=== PATIENT | female | born 1965 | race Native Hawaiian/Other Pacific Islander ===

== ENCOUNTER 2016-11-19 07:59 | Day surgery (SDC) | payer OTHER ==
[~2016-11-19 07:59] MED LIST: FENTANYL 250 MCG/5 ML AMP IV PRN; LACTATED RINGERS 1,000 ML IV SCH; MIDAZOLAM HCL 5 MG/5 ML VIAL IV PRN
[2016-11-19] MEDS ORDERED: LACTATED RINGERS 1,000 ML ONE (08:07)
[2016-11-19] MEDS ORDERED: IV START KIT ONE (08:08)
[2016-11-19] MEDS ORDERED: ONDANSETRON 4 MG/2ML 2 ML VIAL IV ONE (08:31)
[2016-11-19] MEDS ORDERED: FENTANYL 250 MCG/5 ML AMP ONE (08:33)
[2016-11-19] MEDS ORDERED: MIDAZOLAM HCL 5 MG/5 ML VIAL ONE (08:33)
--- NOTE | 2016-11-25 13:48 | SURGPATH ---
[facility] [address] [place] [id number] Patient Name: FABIAN SILVER MR#: [id number] : 1965 Gender: F Specimen #: [id number] Collected: 11/19/2016 Received: 11/24/2016 Reported: 11/25/2016 Submitting Phys: KI BAPTISTE Copy To Phys: [facility] Clinical History / Pre-Operative Diagnosis: Rectal bleeding; diarrhea; LLQ pain Specimen Source / Surgical Procedure Performed: #1-TERMINAL ILEUM BIOPSY; #2-CECAL BIOPSY; #3-SIGMOID BIOPSY AT 30 CM Interpretation: 1. TERMINAL ILEUM, BIOPSY: - SMALL BOWEL MUCOSA SHOWING NO DIAGNOSTIC ABNORMALITIES. - NO EVIDENCE OF SIGNIFICANT INFLAMMATION, VILLOUS BLUNTING, OR MALIGNANCY. 2. CECUM, BIOPSY: - COLONIC MUCOSA SHOWING NO DIAGNOSTIC ABNORMALITIES. - NO EVIDENCE OF SIGNIFICANT INFLAMMATION OR MALIGNANCY. 3. COLON, SIGMOID 30 CM, BIOPSY: - COLONIC MUCOSA SHOWING NO DIAGNOSTIC ABNORMALITIES. - NO EVIDENCE OF SIGNIFICANT INFLAMMATION OR MALIGNANCY. Electronically Signed Out Sandip Izquierdo M.D., Ph.D. Gross Description: #1 The specimen is received in a formalin filled container labeled with the patient's name and "terminal ileum biopsy". Two calzada-caruso biopsies are each 0.4 cm. Totally embedded in cassette #1. #2 The specimen is received in a formalin filled container labeled with the patient's name and "cecal biopsy". Two calzada-caruso biopsies are 0.3 and 0.4 cm. Totally embedded in cassette #2. #3 The specimen is received in a formalin filled container labeled with the patient's name and "sigmoid biopsy at 30 cm". Three calzada-caruso biopsies are 0.2, 0.4 and 0.5 cm. Totally embedded in cassette #3. Masoud Negrete Microscopic Description: 1. Examination of multiple levels from the terminal ileum biopsy shows two fragments of histologically unremarkable small bowel mucosa. The villous architecture is intact without evidence of blunting. There is no evidence of significant inflammation or malignancy. 2. Examination of multiple levels from the cecum biopsy shows two fragments of histologically unremarkable colonic mucosa. The architecture is intact without evidence of distortion. There is no evidence of significant inflammation or malignancy. 3. Examination of multiple levels from the sigmoid colon biopsy at 30 cm shows multiple fragments of histologically unremarkable colonic mucosa. The architecture is intact without evidence of distortion. There is no evidence of significant inflammation or malignancy. 1: 70369 2: 06572 3: 25024 R19.7
== END 2016-11-19 10:30 | disposition home or self-care (01) ==
LOC: SDC 07:59
PROVIDERS: ATTEND Internal Medicine Gastroenterology
PROC: 0DBB8ZX Excision of Ileum, Via Natural or Artificial Opening Endoscopic, Diagnostic (ICD-10-PCS; principal; 2016-11-19)
PROC: 0DBN8ZX Excision of Sigmoid Colon, Via Natural or Artificial Opening Endoscopic, Diagnostic (ICD-10-PCS; 2016-11-19)
PROC: 0DBH8ZX Excision of Cecum, Via Natural or Artificial Opening Endoscopic, Diagnostic (ICD-10-PCS; 2016-11-19)
DX: K64.1 Second degree hemorrhoids (principal); K59.8 Other specified functional intestinal disorders; N05.9 Unspecified nephritic syndrome with unspecified morphologic changes; Z79.82 Long term (current) use of aspirin; Z88.5 Allergy status to narcotic agent
CPT/HCPCS: 45380; J3010; J2250; J2405; J7120